=== PATIENT | female | born 1990 ===

== ENCOUNTER 2021-09-21 11:16 | Emergency (ER) | payer OTHER ==
[~2021-09-21] VITALS: Ht 167.6 cm; Wt 55.5 kg
[2021-09-21 12:07] VITALS: BP 93/68; TEMP 98
[2021-09-21 13:03] LABS: BASO # 0.1 K/mm3 (0.0-0.2); BASO % 0.7 % (0.0-2.0); EOS # 0.2 K/mm3 (0.0-0.7); EOS % 2.5 % (0.0-4.0); GRAN # 4.6 K/mm3 (1.4-6.5); HEMATOCRIT 41.3 % (37.0-47.0); LYMPH # 2.6 K/mm3 (1.2-3.4); LYMPH % 32.3 % (20.0-51.0); MEAN CELL VOLUME 86 fl (80.0-100.0); MEAN CORPUSCULAR HEMOGLOBIN 29 pg (27-31); MEAN CORPUSCULAR HGB CONC 34 g/dl (33.0-37.0); MEAN PLATELET VOLUME 10.1 fl (7.4-10.4); MONO # 0.6 K/mm3 (0.1-0.6); PLATELET COUNT 282 K/mm3 (130-400); RED BLOOD COUNT 4.78 M/mm3 (4.10-5.30)
[2021-09-21 13:09] LABS: COLLECTION METHOD CLEAN CATCH
[2021-09-21 13:16] LABS: MUCOUS Present (NOT PRESENT); PH 6 (5-8); SQUAMOUS EPITHELIAL 0-2 /hpf (0-10); URINE APPEARANCE Clear (CLEAR/HAZY); URINE BACTERIA None Seen /hpf (NONE SEEN); URINE BILIRUBIN Negative (NEGATIVE); URINE BLOOD Negative (NEGATIVE); URINE COLOR Straw (YELLOW); URINE GLUCOSE Negative (NEGATIVE); URINE KETONE Negative (NEGATIVE); URINE LEUKOCYTE ESTERASE Negative (NEGATIVE); URINE NITRATE Negative (NEGATIVE); URINE PROTEIN(semi-quant) Negative (NEGATIVE); URINE RBC 0-2 /hpf (0-2); URINE UROBILINOGEN Negative (NEGATIVE)
[2021-09-21 13:31] LABS: BILIRUBIN,TOTAL 0.7 mg/dL (0.2-1.2); CALCIUM 8.7 mg/dL (8.4-10.2); CREATININE, serum 0.68 mg/dL (0.57-1.11); POTASSIUM 3.7 mmol/L (3.5-4.5); TOTAL PROTEIN 7.1 gm/dL (6.2-8.1)
[2021-09-21] MEDS ORDERED: DULCOLAX STOOL100 MG PO (13:59)
[2021-09-21] MEDS ORDERED: MIRALAX238G PO (14:00)
[2021-09-21 14:17] VITALS: PULSE 80
== END 2021-09-21 14:15 | disposition home or self-care (01) ==
LOC: COL.ER 11:16
PROVIDERS: Nurse Practitioner Primary Care
DX: K59.00 Constipation, unspecified (principal); Z32.02 Encounter for pregnancy test, result negative

== ENCOUNTER 2021-09-26 13:07 | Day surgery (SDC) | payer OTHER ==
[~2021-09-26] VITALS: Ht 157.5 cm; Wt 59.7 kg
[~2021-09-26 13:07] MED LIST: DULCOLAX STOOL100 MG PO; MIRALAX238G PO
[2021-09-26 13:35] VITALS: BP 100/77; PULSE 69; TEMP 98.5
[2021-09-26 14:11] VITALS: BP 100/77; PULSE 69; TEMP 98.5
[2021-09-26 15:00] VITALS: BP 96/72; PULSE 71; TEMP 98.1
--- NOTE | 2021-09-26 15:03 | NUR ---
1500 PATIENT ARRIVES TO [facility] VIA CART. AMBULATED TO CHAIR WITH 2:1 ASSIST. VSS. REPORT AND CARE OF PATIENT RECEIVED FROM NATHAN TSE. WARM BLANKET PLACED ON PATIENT FOR COMFORT. PATIENT'S BROTHER AT CHAIRSIDE. COFFEE WITH CREAM GIVEN TO PATIENT PAER PATIENT REQUEST.
[2021-09-26 15:15] VITALS: BP 108/80; PULSE 59
[2021-09-26 15:30] VITALS: BP 104/72; PULSE 69
--- NOTE | 2021-09-26 15:55 | NUR ---
1515 PATIENT MORE AWAKE. TOLERATING PO COFFEE. D/C INSTRUCTIONS GIVEN VERBALLY USING THE INTERPRETATION LINE. PATIENT VERBALIZED UNDERSTANDING. QUESTIONS INVITED AND ANSWERED. WRITTEN INSTRUCTIONS GIVEN IN [place]. 1530 IV DC'D. CATH INTACT. PATIENT UP GETTING DRESSED. 1544 D/C'D TO POV WITH PATIENT'S BROTHER.
== END 2021-09-26 15:44 | disposition home or self-care (01) ==
LOC: SDCO 13:07
DX: K21.00 Gastro-esophageal reflux disease with esophagitis, without bleeding (principal); K29.50 Unspecified chronic gastritis without bleeding
CPT/HCPCS: J2704; J7030

== ENCOUNTER 2023-01-10 11:43 | Day surgery (SDC) | payer BC ==
[~2023-01-10] VITALS: Ht 165.1 cm; Wt 56.1 kg
[2023-01-10] VITALS (7 sets, daily range): BP systolic 94–110; BP diastolic 62–76; PULSE 69–105; TEMP 97.7–98.1
[2023-01-10 11:54] LABS: BASO # 0.1 K/mm3 (0.0-0.2); BASO % 1.5 % (0.0-2.0); EOS # 0.3 K/mm3 (0.0-0.7); EOS % 5.2 % (0.0-4.0); GRAN % 41.2 % (42.2-75.2); HEMATOCRIT 42.1 % (37.0-47.0); HEMOGLOBIN 14.8 g/dl (12.5-16.0); LYMPH % 42.1 % (20.0-51.0); MEAN CELL VOLUME 85 fl (80.0-100.0); MEAN CORPUSCULAR HEMOGLOBIN 30 pg (27-31); MEAN CORPUSCULAR HGB CONC 35 g/dl (33.0-37.0); MEAN PLATELET VOLUME 10.4 fl (7.4-10.4); MONO # 0.5 K/mm3 (0.1-0.6); MONO % 9.6 % (1.7-9.3); PLATELET COUNT 293 K/mm3 (130-400); RED BLOOD COUNT 4.96 M/mm3 (4.10-5.30); REDCELL DISTRIBUTION WIDTH-CV 13.1 % (11.5-14.5)
[2023-01-10 12:06] LABS: ALBUMIN 4.2 gm/dL (3.5-5.0); BILIRUBIN,TOTAL 0.6 mg/dL (0.2-1.2); CALCIUM 8.9 mg/dL (8.4-10.2); CREATININE, serum 0.69 mg/dL (0.57-1.11); POTASSIUM 3.5 mmol/L (3.5-4.5); TOTAL PROTEIN 7.1 gm/dL (6.2-8.1)
[2023-01-10] MEDS ORDERED: MOTRIN 600600 MG/TAB PO (12:44)
[2023-01-10] MEDS ORDERED: NORCO 325 MG-51 TAB PO (12:44)
--- NOTE | 2023-01-10 15:25 | NUR ---
PATIENT RETURNS TO ROOM 6 PER CART FROM PACU ACCOMPANIED BY JULITO EVANS. AROUSES TO VERBAL STIMULI. INCISIONS X5 COVERED WITH EXOFIN AND WOUND EDGES WELL APPROIXMATED. IVF INFUSING. SIDERAILS UP X2. CALL LIGHT IN REACH. ALLOWED TO REST WITH EYES CLOSED. SISTER IN ROOM. IVF INFUSING.
--- NOTE | 2023-01-10 15:40 | NUR ---
CONTINUES TO REST. AROUSES TO VERBAL STIMULI.
--- NOTE | 2023-01-10 15:55 | NUR ---
BECOMING MORE AWAKE AND TALKS WITH SISTER.
--- NOTE | 2023-01-10 16:10 | NUR ---
MORE AWAKE AND SIPPING ON APPLE JUICE.
--- NOTE | 2023-01-10 16:25 | NUR ---
DENIES PAIN OR NAUSEA. TOLERATED APPLE JUICE. SISTER IN ROOM AND ASSISTS WITH TRANSLATING.
--- NOTE | 2023-01-10 16:40 | NUR ---
IV DISCONTINUED AND ASSISTED PATIENT WITH DRESSING. GIVEN DISMISSAL INSTRUCTIONS TO PATIENT AND SISTER. BOTH VERBALILZED UNDERSTANDING. INFORMED THAT SCRIPTS WERE SENT TO [facility].
--- NOTE | 2023-01-10 16:55 | NUR ---
DISMISSAL INSTRUCTIONS SIGNED AND ASSISTED INTO WHEELCHAIR. TAKEN TO VEICLE DRIVEN BY SISTER AND ASSISTED INTO CAR WITH INSTRUCTIONS IN HAND.
== END 2023-01-10 16:55 | disposition home or self-care (01) ==
LOC: SDCO 11:43
PROVIDERS: Surgery
DX: K80.10 Calculus of gallbladder with chronic cholecystitis without obstruction (principal); K82.8 Other specified diseases of gallbladder; R19.4 Change in bowel habit
CPT/HCPCS: J0690; J1100; J1885; J2405; J2704; J2710; J3010; J7120